=== PATIENT | female | born 2000 | race Caucasian/White ===

== ENCOUNTER 2023-01-31 13:08 | Emergency (ER) | payer SELFPAY ==
[2023-01-31 15:35] LABS: CORONAVIRUS COVID-19 NAA POSITIVE (NEGATIVE); INFLUENZA A NAA NEGATIVE (NEGATIVE); INFLUENZA B NAA NEGATIVE (NEGATIVE)
[2023-01-31] MEDS ORDERED: Acetaminophen 500 MG Tab PO ONE (16:18)
[2023-01-31] MEDS ORDERED: Acetaminophen 500 MG Tab ONE (16:19)
== END 2023-01-31 16:24 | disposition home or self-care (01) ==
LOC: MW.ED 13:08
DX: U07.1 COVID-19 (principal)
CPT/HCPCS: 0240U; 99284; A9270; 99283

== ENCOUNTER 2024-04-06 00:16 | Emergency (ER) | payer SELFPAY ==
[2024-04-06 01:05] LABS: BILIRUBIN,URINE NEGATIVE (NEGATIVE); GLUCOSE,URINE NEGATIVE (NEGATIVE); KETONES,URINE NEGATIVE (NEGATIVE); LEUKOCYTE ESTERASE,URINE NEGATIVE (NEGATIVE); NITRITE,URINE NEGATIVE (NEGATIVE); OCCULT BLOOD,URINE LARGE (NEGATIVE); PROTEIN,URINE NEGATIVE (NEGATIVE); UROBILINOGEN,URINE 0.2 EU/dL (<2.0)
[2024-04-06 01:09] LABS: APPEARANCE,URINE SLT CLOUDY; COLOR,URINE DARK YELLOW
[2024-04-06 01:15] LABS: AMORPHOUS SEDIMENT,URINE OCCASIONAL (NEGATIVE); BACTERIA,URINE FEW (NEGATIVE); EPITHELIAL CELLS,URINE FEW (NONE-FEW); MUCUS,URINE OCCASIONAL (NONE-MOD); RBC,URINE 29-35 (0-2/HPF); WBC,URINE 0-3 (0-5/HPF)
[2024-04-06] MEDS: Lidocaine 4% 1 each Patch TOP ONE ×2 (01:57→03:18)
[2024-04-06] MEDS: Dexamethasone 4 MG/ML SDV IVPUSH ONE ×2 (01:57→03:09)
[2024-04-06] MEDS: tiZANidine 4 MG Tab PO ONE ×2 (01:57→03:16)
[2024-04-06] MEDS: Ketorolac 30 MG/ML SDV IM ONE ×2 (01:58→03:18)
[2024-04-06] MEDS: Acetaminophen 500 MG Tab PO ONE ×2 (01:58→03:05)
== END 2024-04-06 04:50 | disposition home or self-care (01) ==
LOC: MW.ED 00:16
DX: S39.012A Strain of muscle, fascia and tendon of lower back, initial encounter (principal); M51.17 Intervertebral disc disorders with radiculopathy, lumbosacral region; M54.42 Lumbago with sciatica, left side; Z79.899 Other long term (current) drug therapy; X50.0XXA Overexertion from strenuous movement or load, initial encounter
CPT/HCPCS: 72131; 81001; 81025; 96372; 96374; 99284; A9270; J1100; J1885

== ENCOUNTER 2024-04-07 11:43 | Emergency (ER) | payer SELFPAY | END 2024-04-07 15:14 | disposition home or self-care (01) | LOC: MW.ED 11:43 | DX: M54.50 Low back pain, unspecified (principal); Z75.8 Other problems related to medical facilities and other health care | CPT/HCPCS: 72148; 72148-26; 99283 ==

== ENCOUNTER 2024-04-13 12:43 | Emergency (ER) | payer SELFPAY ==
[2024-04-13] MEDS: Acetaminophen 500 MG Tab PO ONE (13:55)
[2024-04-13] MEDS: Ibuprofen 800 MG Tab PO ONE (13:55)
== END 2024-04-13 15:05 | disposition home or self-care (01) ==
LOC: MW.ED 12:43
DX: J10.1 Influenza due to other identified influenza virus with other respiratory manifestations (principal); Z75.8 Other problems related to medical facilities and other health care
CPT/HCPCS: 87428; 99284; A9270; 99283